=== PATIENT | female | born 1960 | race Caucasian/White ===

== ENCOUNTER → 2018-08-09 | Outpatient (CLI) | payer BC ==
--- NOTE | 2018-08-09 15:24 | MR ---
EXAMINATION TYPE: MR lumbar spine wo con DATE OF EXAM: 08/09/2018 COMPARISON: NONE HISTORY: Neuralgia and neuritis, unspecified, pain in right leg and foot x 3-4 weeks TECHNIQUE: T1 and T2 axial and sagittal images of the lumbar spine are submitted. FINDINGS: There is no abnormal signal seen within the visualized spinal cord or paraspinal soft tissu es. Mild chronic appearing superior endplate compression deformity T12. Nonspecific thickening of the left adrenal gland. At L1-2 there is no disc herniation or canal stenosis. No foraminal encroachment. At L2-3 there is no disc herniation or canal stenosis. No foraminal encroachment At L3-4 there is mild facet arthropathy. There is no disc herniation or canal stenosis. Neural forami na patent. At L4-5 there is mild hypertrophic change of the facets. No disc herniation or canal stenosis. No for aminal encroachment At L5-S1 there is severe degenerative disc disease with discogenic marrow changes. There is an annula r tear and focal central disc herniation which encroaches upon the thecal sac and exiting nerve roots . Moderate bilateral foraminal encroachment noted. IMPRESSION: 1. At L5-S1 there is severe degenerative disc disease with discogenic marrow changes. There is an sang ular tear and focal central disc herniation which encroaches upon the thecal sac and exiting nerve ro ots. Small focal area of extrusion extending posterior to the upper margin of the S1 segment. Moderat e bilateral foraminal encroachment noted.
== END | disposition home or self-care (01) ==
LOC: RADMRIMAIN 11:46
PROVIDERS: ATTEND Family Medicine
DX: M51.17 Intervertebral disc disorders with radiculopathy, lumbosacral region (principal)
CPT/HCPCS: 72148

== ENCOUNTER 2024-01-27 16:43 | Observation (INO) | payer BC ==
[2024-01-27] MEDS: IOPAMIDOL-370 100ML BTL INJ ONE (14:30)
[~2024-01-27 16:43] MED LIST: HEPARIN SODIUM 1,000 UN/ML (10ML VL) ONE; LIDOCAINE 1% INJ 10MG/ML (20 ML MDV) ONE; MIDAZOLAM 2 MG/2 ML VIAL ONE; NITROGLYCERIN 1000MCG/10ML SYRINGE ONE; SODIUM CHLORIDE 0.9% 1,000 ML BAG ONE; TICAGRELOR 90 MG TAB ONE; VERAPAMIL 2.5 MG/ML 2 ML AMP ONE; fentaNYL (PF) 50 MCG/ML 2 ML AMP ONE
[2024-01-27] MEDS ORDERED: ATORVASTATIN 40 MG TAB ONE (21:22)
[2024-01-27] MEDS ORDERED: DULoxetine HCL 30 MG CAPSULE.DR PO ONE (21:22)
[2024-01-27] MEDS ORDERED: TICAGRELOR 90 MG TAB ONE (21:23)
[2024-01-27] MEDS ORDERED: METOPROLOL TARTRATE 12.5 MG TAB ONE (21:23)
[2024-01-27] MEDS ORDERED: ACETAMINOPHEN TAB 500 MG TAB ONE (21:27)
[2024-01-28] MEDS ORDERED: LEVOTHYROXINE 125 MCG TAB ONE (06:54)
[2024-01-28] MEDS ORDERED: ASPIRIN 81 MG ONE (08:29)
[2024-01-28] MEDS ORDERED: DULoxetine HCL 30 MG CAPSULE.DR PO ONE (08:30)
[2024-01-28] MEDS ORDERED: FUROSEMIDE 20 MG TAB ONE (08:30)
[2024-01-28] MEDS ORDERED: TICAGRELOR 90 MG TAB ONE (08:30)
[2024-01-28] MEDS ORDERED: SODIUM CHLORIDE 0.9% 1,000 ML BAG ONE (11:00)
[2024-01-28] MEDS ORDERED: SODIUM CHLORIDE 0.9% 250 ML BAG ONE (11:20)
[2024-01-28] MEDS ORDERED: HEPARIN SODIUM,PORCINE 5,000 UNIT/ML 1 ML VIAL ONE (11:20)
== END 2024-01-28 11:40 | disposition home or self-care (01) ==
LOC: 3NCARDOBS 16:43 → UNDOADMOB 17:49 → INTOOBSV 17:49 → 3NCARDOBS 17:49 → UNDODISIN 01-28 11:47
PROVIDERS: ADMIT Internal Medicine; ATTEND Internal Medicine
DX: I25.10 Atherosclerotic heart disease of native coronary artery without angina pectoris (principal); I95.81 Postprocedural hypotension; I10 Essential (primary) hypertension; E78.5 Hyperlipidemia, unspecified; E11.9 Type 2 diabetes mellitus without complications; Z85.3 Personal history of malignant neoplasm of breast; Z95.0 Presence of cardiac pacemaker; Z79.82 Long term (current) use of aspirin; Z79.899 Other long term (current) drug therapy; Z79.890 Hormone replacement therapy; Z79.84 Long term (current) use of oral hypoglycemic drugs; Z88.0 Allergy status to penicillin; Z82.49 Family history of ischemic heart disease and other diseases of the circulatory system
CPT/HCPCS: 92978; 93458

== ENCOUNTER 2024-02-28 13:50 | Emergency (ER) | payer BC ==
--- NOTE | 2024-02-28 14:31 | ED ---
Recheck HPI - General Source: patient, RN notes reviewed <Manju Mcneal - Last Filed: 02/28/24 14:29> - General Source: patient, RN notes reviewed, old records reviewed Mode of arrival: ambulatory Limitations: no limitations - History of Present Illness MD Complaint: abnormal lab -: days(s) Returns Today for: Called Because of Abnormal Lab/Test Symptoms Since Prior Visit: no new symptoms Context: called for abnormal lab result Associated Symptoms: none Treatments Prior to Arrival: other (0) <Barron Casillas - Last Filed: 03/13/24 19:08> - General Stated Complaint: Abd labs-sent by PCP Time Seen by Provider: 02/28/24 14:05 - History of Present Illness Initial Comments: Quick [id number] female with a history of breast cancer currently on hormone replacement therapy, that started 2 weeks ago, presents to the emergency department chief complaint of elevated kidney enzymes. Patient had blood work drawn by oncologist, Dr. Mauricio, this week and was instructed to report to the emergency department for elevated kidney enzymes. She denies current chemo or radiation. (Manju Mcneal) This is a 63-year-old female on medication for cancer coming in for severe dehydration and elevated renal function (Barron Casillas) - Related Data Allergies Allergy/AdvReac Type Severity Reaction Status Date / Time amoxicillin [From Augmentin] Allergy Rash/Hives Verified 02/28/24 14:55 clavulanic acid Allergy Rash/Hives Verified 02/28/24 14:55 [From Augmentin] Penicillins Allergy Rash/Hives Verified 02/28/24 14:55 Review of Systems ROS Other: All systems not noted in ROS Statement are negative. <Manju Mcneal - Last Filed: 02/28/24 14:29> ROS Other: All systems not noted in ROS Statement are negative. <Barron Casillas - Last Filed: 03/13/24 19:08> ROS Statement: Those systems with pertinent positive or pertinent negative responses have been documented in the HPI. General Exam <Manju Mcneal - Last Filed: 02/28/24 14:29> General appearance: alert, in no apparent distress Head exam: Present: atraumatic, normocephalic, normal inspection Eye exam: Present: normal appearance, PERRL, EOMI. Absent: scleral icterus, conjunctival injection, periorbital swelling ENT exam: Present: normal exam, mucous membranes moist Neck exam: Present: normal inspection. Absent: tenderness, meningismus, lymphadenopathy Respiratory exam: Present: normal lung sounds bilaterally. Absent: respiratory distress, wheezes, rales, rhonchi, stridor Cardiovascular Exam: Present: regular rate, normal rhythm, normal heart sounds. Absent: systolic murmur, diastolic murmur, rubs, gallop, clicks GI/Abdominal exam: Present: soft, normal bowel sounds. Absent: distended, tenderness, guarding, rebound, rigid Extremities exam: Present: normal inspection, full ROM, normal capillary refill. Absent: tenderness, pedal edema, joint swelling, calf tenderness Back exam: Present: normal inspection Neurological exam: Present: alert, oriented X3, CN II-XII intact Psychiatric exam: Present: normal affect, normal mood Skin exam: Present: warm, dry, intact, normal color. Absent: rash <Barron Casillas - Last Filed: 03/13/24 19:08> - General Exam Comments Initial Comments: Visual Physical Exam Vital signs reviewed General: Well-appearing, nontoxic, no acute distress. Head: Normocephalic, atraumatic Eyes: PERRLA, EOMI ENT: Airway patent Chest: Nonlabored breathing Skin: No visual rash, normal skin tone Neuro: Alert and oriented 3 Musculoskeletal: No gross abnormalities (Stieler,Manju) Course <Barron Casillas - Last Filed: 03/13/24 19:08> Vital Signs 02/28/24 02/28/24 02/28/24 14:51 19:00 21:00 Temperature 98.2 F Pulse Rate 89 70 68 Respiratory 16 16 16 Rate Blood Pressure 93/59 126/74 110/64 O2 Sat by Pulse 98 99 97 Oximetry 02/28/24 21:19 Temperature Pulse Rate 74 Respiratory 16 Rate Blood Pressure 109/70 O2 Sat by Pulse 96 Oximetry - Reevaluation(s) Reevaluation #1: Medical records reviewed (Barron Casillas) Reevaluation #2: Patient symptoms unchanged (Barron Casillas) Reevaluation #3: Patient informed of results and questions answered (Barron Casillas) Reevaluation #4: Was pt. sent in by a medical professional or institution (, PA, PRODUCTION ASSISTANT, urgent care, hospital, or custodial...) When possible be specific @ -no Did you speak to anyone other than the patient for history (EMS, parent, family, police, friend...)? What history was obtained from this source @ -no Did you review nursing and triage notes (agree or disagree)? Why? @ -agree Are old charts reviewed (outside hosp., previous admission, EMS record, old EKG, old radiological studies, urgent care reports/EKG's, custodial records)? Report findings @ -yes Differential Diagnosis (chest pain, altered mental status, abdominal pain women, abdominal pain men, vaginal bleeding, weakness, fever, dyspnea, syncope, headache, dizziness, GI bleed, back pain, seizure, CVA, palpatations, mental health, musculoskeletal)? @ -prior EKG interpreted by me (3pts min.). @ -no X-rays interpreted by me (1pt min.). @ -no CT interpreted by me (1pt min.). @ -no U/S interpreted by me (1pt. min.). @ -no What testing was considered but not performed or refused? (CT, X-rays, U/S, labs)? Why? @ -none What meds were considered but not given or refused? Why? @ -none Did you discuss the management of the patient with other professionals (irlanda alfaro i.e. , PA, PRODUCTION ASSISTANT, lab, RT, psych nurse, nursing home social worker, workday financials consultant, teacher, corporate security officer, case mgr)? Give summary @ -no Was smoking cessation discussed for >3mins.? @ -no Was critical care preformed (if so, how long)? @ -no Were there social determinants of health that impacted care today? How? (Homelessness, low income, unemployed, alcoholism, drug addiction, transportation, low edu. Level, literacy, decrease access to med. care, senior care, rehab)? @ -none Was there de-escalation of care discussed even if they declined (Discuss DNR or withdrawal of care, Hospice)? DNR status @ -no What co-morbidities impacted this encounter? (DM, HTN, Smoking, COPD, CAD, Cancer, CVA, ARF, Chemo, Hep., AIDS, mental health diagnosis, sleep apnea, morbid obesity)? @ -none Was patient admitted / discharged? Hospital course, mention meds given and route, prescriptions, significant lab abnormalities, going to OR and other pertinent info. @ - 63 female to ER for evaluation of weakness dehydration acute kidney injury. Patient does not need to be admitted to the hospital and can be discharged home Discharge Undiagnosed new problem with uncertain prognosis? @ -no Drug Therapy requiring intensive monitoring for toxicity (Heparin, Nitro, Insulin, Cardizem)? @ -no Were any procedures done? @ -no Diagnosis/symptom? @ -Acute kidney injury Acute, or Chronic, or Acute on Chronic? @ -Acute Uncomplicated (without systemic symptoms) or Complicated (systemic symptoms)? @ -Complicated Side effects of treatment? @ -no Exacerbation, Progression, or Severe Exacerbation? @ -exacerbation Poses a threat to life or bodily function? How? (Chest pain, [place], [place], pneumonia, PE, COPD, DKA, ARF, appy, cholecystitis, CVA, Diverticulitis, Homicidal, Suicidal, threat to staff... and all critical care pts) @ -yes with kidney injury (Barron Casillas) Medical Decision Making <Manju Mcneal - Last Filed: 02/28/24 14:29> - Lab Data Result diagrams: 02/28/24 19:03 02/28/24 18:30 <Barron Casillas - Last Filed: 03/13/24 19:08> - Medical Decision Making I completed the quick note portion of this chart signed Manju Mcneal PA-C (Manju Mcneal) 63 female to ER for evaluation of weakness dehydration acute kidney injury. Patient does not need to be admitted to the hospital and can be discharged home (Barron Casillas) - Lab Data Lab Results 02/28/24 02/28/24 02/28/24 Range/Units 16:18 18:30 19:03 WBC 5.8 (3.8-10.6) k/uL RBC 3.71 L (3.80-5.40) m/uL Hgb 11.2 L (11.4-16.0) gm/dL Hct 34.6 (34.0-46.0) % MCV 93.1 (80.0-100.0) fL MCH 30.3 (25.0-35.0) pg MCHC 32.5 (31.0-37.0) g/dL RDW 12.9 (11.5-15.5) % Plt Count 116 L (150-450) k/uL MPV 9.0 Neutrophils % 72 % Lymphocytes % 19 % Monocytes % 4 % Eosinophils % 2 % Basophils % 1 % Neutrophils # 4.2 (1.3-7.7) k/uL Lymphocytes # 1.1 (1.0-4.8) k/uL Monocytes # 0.2 (0-1.0) k/uL Eosinophils # 0.1 (0-0.7) k/uL Basophils # 0.0 (0-0.2) k/uL Sodium 135 L (137-145) mmol/L Potassium 4.7 (3.5-5.1) mmol/L Chloride 98 (98-107) mmol/L Carbon Dioxide 26 (22-30) mmol/L Anion Gap 11 mmol/L BUN 46 H (7-17) mg/dL Creatinine 1.45 H (0.52-1.04) mg/dL Est GFR (CKD-EPI)AfAm 45 (>60 ml/min/1.73 sqM) Est GFR (CKD-EPI)NonAf 39 (>60 ml/min/1.73 sqM) Glucose 98 (74-99) mg/dL Calcium 9.7 (8.4-10.2) mg/dL Phosphorus 3.7 (2.5-4.5) mg/dL Magnesium 2.1 (1.6-2.3) mg/dL Total Bilirubin 0.5 (0.2-1.3) mg/dL AST 42 H (14-36) U/L ALT 26 (4-34) U/L Alkaline Phosphatase 95 (38-126) U/L Total Protein 7.8 (6.3-8.2) g/dL Albumin 4.4 (3.5-5.0) g/dL Urine Color Colorless Urine Appearance Clear (Clear) Urine pH 7.0 (5.0-8.0) Ur Specific [place] 1.007 (1.001-1.035) Urine Protein Negative (Negative) Urine Glucose (UA) Negative (Negative) Urine Ketones Negative (Negative) Urine Blood Negative (Negative) Urine Nitrite Negative (Negative) Urine Bilirubin Negative (Negative) Urine Urobilinogen <2.0 (<2.0) mg/dL Ur Leukocyte Esterase Small H (Negative) Urine RBC <1 (0-5) /hpf Urine WBC 3 (0-5) /hpf Ur Squamous Epith Cells 1 (0-4) /hpf Disposition <Manju Mcneal - Last Filed: 02/28/24 14:29> Is patient prescribed a controlled substance at d/c from ED?: No <Barron Casillas - Last Filed: 03/13/24 19:08> Clinical Impression: ELVIRA (acute kidney injury) Disposition: HOME SELF-CARE Condition: Fair Instructions (If sedation given, give patient instructions): Acute Kidney Injury (DC) Referrals: Phillip Mccray MD [Primary Care Provider] - 1-2 days Angel Reyes DO [STAFF PHYSICIAN] - 1-2 days
[2024-02-28 14:54] VITALS: RESP 16; TEMP 98.2
[2024-02-28 16:25] LABS: Appearance,Urine Clear (Clear); Bilirubin,Urine Negative (Negative); Blood,Urine Negative (Negative); Color,Urine Colorless; Glucose,Urine (UA) Negative (Negative); Ketones,Urine Negative (Negative); Leukocyte Esterase,Urine Small (Negative); Nitrite,Urine Negative (Negative); Protein,Urine Negative (Negative); RBC,Urine <1 /hpf (0-5); Specific Gravity,Urine 1.007 (1.001-1.035); Squamous Epithelial Cell,Urine 1 /hpf (0-4); Urobilinogen,Urine <2.0 mg/dL (<2.0); WBC,Urine 3 /hpf (0-5)
[2024-02-28] MEDS: SODIUM CHLORIDE 0.9% 1,000 ML IV STA (18:43)
[2024-02-28 18:54] LABS: ALT 26 U/L (4-34); African American GFR (CKD) 45 (>60 ml/min/1.73 sqM); Alkaline Phosphatase 95 U/L (38-126); Anion Gap 11 mmol/L; Blood Urea Nitrogen 46 mg/dL (7-17); Calcium 9.7 mg/dL (8.4-10.2); Carbon Dioxide 26 mmol/L (22-30); Chloride 98 mmol/L (98-107); Glucose 98 mg/dL (74-99); Magnesium 2.1 mg/dL (1.6-2.3); Non-African American GFR(CKD) 39 (>60 ml/min/1.73 sqM); Phosphorus 3.7 mg/dL (2.5-4.5); Sodium 135 mmol/L (137-145); Total Bilirubin 0.5 mg/dL (0.2-1.3)
[2024-02-28 18:56] LABS: AST 42 U/L (14-36); Albumin 4.4 g/dL (3.5-5.0); Potassium 4.7 mmol/L (3.5-5.1); Total Protein 7.8 g/dL (6.3-8.2)
[2024-02-28 19:23] LABS: Basophils % (A) 1 %; Eosinophils # (A) 0.1 k/uL (0-0.7); Eosinophils % (A) 2 %; HCT 34.6 % (34.0-46.0); HGB 11.2 gm/dL (11.4-16.0); Lymphocytes # (A) 1.1 k/uL (1.0-4.8); Lymphocytes % (A) 19 %; MCH 30.3 pg (25.0-35.0); MCHC 32.5 g/dL (31.0-37.0); MCV 93.1 fL (80.0-100.0); Monocytes # (A) 0.2 k/uL (0-1.0); Monocytes % (A) 4 %; Neutrophils # (A) 4.2 k/uL (1.3-7.7); Neutrophils % (A) 72 %; Platelet Count 116 k/uL (150-450); RBC 3.71 m/uL (3.80-5.40); RDW 12.9 % (11.5-15.5); WBC 5.8 k/uL (3.8-10.6)
[2024-02-28 21:20] VITALS: BP 109/70; PULSE 74
== END 2024-02-28 21:19 | disposition home or self-care (01) ==
LOC: EC 13:50
DX: R79.9 Abnormal finding of blood chemistry, unspecified
CPT/HCPCS: 36415; 80053; 81001; 83735; 84100; 85025; 99283